=== PATIENT | male | born 1955 | race Hispanic/Latino ===

== ENCOUNTER 2020-02-07 12:54 | Inpatient (IN) | payer OTHER ==
[~2020-02-07] VITALS: Ht 165.1 cm; Wt 107.0 kg
[2020-02-07] MEDS ORDERED: RENAL DOSE IV SCH (15:30)
[2020-02-07] MEDS ORDERED: VANCOMYCIN PROTOCOL PER PHARMACY IV SCH (15:30)
[2020-02-07 15:49] LABS: BASOPHILS % (AUTO) 0.6 % (0.0-5.0); EOSINOPHILS % (AUTO) 0.3 % (0.0-8.0); HEMATOCRIT 42.7 % (42-54); LYMPHOCYTES % (AUTO) 9.3 % (21.0-51.0); MEAN CORPUSCULAR HEMOGLOBIN 27.6 pg (27.0-33.0); MEAN CORPUSCULAR HGB CONC 32.8 g/dL (32.0-36.0); MEAN CORPUSCULAR VOLUME 84.2 fL (79-99); MONOCYTES % (AUTO) 7.1 % (3.0-13.0); NEUTROPHILS % (AUTO) 81.3 % (40.0-77.0); PLATELET COUNT (AUTO) 340 K/uL (130-400); RED BLOOD CELL COUNT(AUTO) 5.07 MIL/uL (4.50-6.20); RED CELL DISTRIBUTION WIDTH 13.7 % (11.0-15.5); WHITE BLOOD COUNT (AUTO) 19.1 K/uL (4.8-10.8)
[2020-02-07 16:05] LABS: CREATININE 0.9 mg/dL (0.5-1.5)
[2020-02-07] MEDS ORDERED: COMPOUND IV REFRIGERATED 1 EACH IVSOLN MISC PRN (16:45)
[2020-02-07 16:50] LABS: APPEARANCE,URINE Clear (CLEAR); BILIRUBIN,URINE Negative (NEGATIVE); COLOR,URINE Yellow (YELLOW); GLUCOSE, URINE (UA) Negative (NEGATIVE); KETONES,URINE Negative (NEGATIVE); LEUKOCYTE ESTERASE ,URINE Small (NEGATIVE); NITRATE,URINE Negative (NEGATIVE); OCCULT BLOOD,URINE Trace (NEGATIVE); PROTEIN,URINE Negative (NEGATIVE)
[2020-02-07] MEDS ORDERED: VANCOMYCIN 2 GM in SODIUM CHLORIDE 0.9% 500ML 500 ML IV ONE (17:00)
[2020-02-07 17:18] LABS: BACTERIA,URINE Moderate /HPF (None Seen)
[2020-02-07 17:19] LABS: MUCUS,URINE Few LPF (None Seen)
[2020-02-07] MEDS ORDERED: ZOSYN 3.375GM+NS 50ML 50 ML IV SCH (21:00)
[2020-02-08] VITALS (7 sets, daily range): BP systolic 133–154; BP diastolic 64–86
[2020-02-08] MEDS ORDERED: VANCOMYCIN 1GM+NS 250ML IV SCH (06:00)
[2020-02-08 08:17] LABS: BASOPHILS % (AUTO) 0.7 % (0.0-5.0); EOSINOPHILS % (AUTO) 0.9 % (0.0-8.0); HEMATOCRIT 43.7 % (42-54); LYMPHOCYTES % (AUTO) 12.9 % (21.0-51.0); MEAN CORPUSCULAR HEMOGLOBIN 27.1 pg (27.0-33.0); MEAN CORPUSCULAR VOLUME 84.7 fL (79-99); MONOCYTES % (AUTO) 8.3 % (3.0-13.0); PLATELET COUNT (AUTO) 332 K/uL (130-400); RED BLOOD CELL COUNT(AUTO) 5.16 MIL/uL (4.50-6.20); RED CELL DISTRIBUTION WIDTH 13.8 % (11.0-15.5); WHITE BLOOD COUNT (AUTO) 14.8 K/uL (4.8-10.8)
[2020-02-08 08:27] LABS: CREATININE 0.9 mg/dL (0.5-1.5); POTASSIUM 4.4 mmol/L (3.5-5.1)
[2020-02-08] MEDS ORDERED: COMPOUND IV REFRIGERATED 1 EACH IVSOLN MISC PRN (08:45)
[2020-02-08] MEDS ORDERED: VANCOMYCIN 1GM+NS 250ML 0 ML IV ONE (08:57)
[2020-02-08] MEDS: ENOXAPARIN SODIUM 30 MG/0.3 ML SQ SCH (09:00)
[2020-02-08] MEDS ORDERED: VANCOMYCIN 1.25 GM in SODIUM CHLORIDE 0.9% 250 ML IV SCH (09:00)
[2020-02-08] MEDS: LOSARTAN 50 MG TABLET PO SCH (09:26)
[2020-02-08] MEDS: ZOSYN 3.375GM+NS 50ML 50 ML IV SCH ×2 (12:47→21:21)
[2020-02-09 04:00] VITALS: BP 123/71
[2020-02-09] MEDS: ZOSYN 3.375GM+NS 50ML 50 ML IV SCH (05:16)
[2020-02-09 05:40] LABS: BASOPHILS % (AUTO) 0.7 % (0.0-5.0); EOSINOPHILS % (AUTO) 1.1 % (0.0-8.0); HEMATOCRIT 42.3 % (42-54); LYMPHOCYTES % (AUTO) 13.1 % (21.0-51.0); MEAN CORPUSCULAR HEMOGLOBIN 26.9 pg (27.0-33.0); MEAN CORPUSCULAR HGB CONC 31.7 g/dL (32.0-36.0); MEAN CORPUSCULAR VOLUME 84.9 fL (79-99); MONOCYTES % (AUTO) 8.3 % (3.0-13.0); NEUTROPHILS % (AUTO) 75.5 % (40.0-77.0); PLATELET COUNT (AUTO) 350 K/uL (130-400); RED BLOOD CELL COUNT(AUTO) 4.98 MIL/uL (4.50-6.20); RED CELL DISTRIBUTION WIDTH 13.9 % (11.0-15.5); WHITE BLOOD COUNT (AUTO) 14.2 K/uL (4.8-10.8)
[2020-02-09 06:09] LABS: CREATININE 1.1 mg/dL (0.5-1.5); POTASSIUM 4.3 mmol/L (3.5-5.1)
[2020-02-09] MEDS ORDERED: PHARMACY COMMUNICATION MISC SCH (08:15)
[2020-02-09] MEDS: LOSARTAN 50 MG TABLET PO SCH (08:42)
[2020-02-09] MEDS: ENOXAPARIN SODIUM 30 MG/0.3 ML SQ SCH (09:00)
[2020-02-09 09:27] VITALS: BP 164/89
[2020-02-09] MEDS: MEROPENEM 1 GM VIAL IVP SCH ×2 (10:08→18:36)
[2020-02-09 12:46] VITALS: BP 135/81
[2020-02-09] MEDS ORDERED: LOSARTAN 50 MG TABLET PO SCH (14:15)
[2020-02-09 16:59] VITALS: BP_SYST 125; BP_SYST 145; BP_DIAS 54; BP_DIAS 82
[2020-02-09 19:19] VITALS: BP 128/75
[2020-02-09 23:28] VITALS: BP 141/82
[2020-02-10] MEDS: MEROPENEM 1 GM VIAL IVP SCH ×3 (02:16→17:13)
[2020-02-10 04:00] VITALS: BP 139/80
[2020-02-10 05:49] LABS: BASOPHILS % (AUTO) 0.9 % (0.0-5.0); EOSINOPHILS % (AUTO) 0.7 % (0.0-8.0); HEMATOCRIT 46.8 % (42-54); LYMPHOCYTES % (AUTO) 13.5 % (21.0-51.0); MEAN CORPUSCULAR HEMOGLOBIN 27.3 pg (27.0-33.0); MEAN CORPUSCULAR HGB CONC 32.3 g/dL (32.0-36.0); MEAN CORPUSCULAR VOLUME 84.6 fL (79-99); MONOCYTES % (AUTO) 8.3 % (3.0-13.0); NEUTROPHILS % (AUTO) 74.9 % (40.0-77.0); PLATELET COUNT (AUTO) 379 K/uL (130-400); RED BLOOD CELL COUNT(AUTO) 5.53 MIL/uL (4.50-6.20); RED CELL DISTRIBUTION WIDTH 13.8 % (11.0-15.5); WHITE BLOOD COUNT (AUTO) 16.9 K/uL (4.8-10.8)
[2020-02-10 06:39] LABS: CARBON DIOXIDE 24 mmol/L (21-32); CHLORIDE 101 mmol/L (101-111); CREATININE 1.1 mg/dL (0.5-1.5); GLOMERULAR FILTR. RATE CALC 72 mL/min (>60); GLUCOSE,RANDOM 114 mg/dL (70-105); POTASSIUM 4.2 mmol/L (3.5-5.1); SODIUM SERUM 137 mmol/L (136-145); UREA NITROGEN, BLOOD 15 mg/dL (7-18)
[2020-02-10 08:12] VITALS: BP 132/93
[2020-02-10] MEDS: LOSARTAN 50 MG TABLET PO SCH (09:03)
[2020-02-10] MEDS: ENOXAPARIN SODIUM 30 MG/0.3 ML SQ SCH (09:03)
[2020-02-10 12:22] VITALS: BP 159/90
[2020-02-10 18:29] VITALS: BP 134/82
[2020-02-10 19:30] VITALS: BP 133/84
[2020-02-10 23:22] VITALS: BP 132/79
[2020-02-11] MEDS: MEROPENEM 1 GM VIAL IVP SCH ×3 (02:04→17:35)
[2020-02-11 03:47] VITALS: BP 131/73
[2020-02-11 05:44] LABS: BASOPHILS % (AUTO) 0.7 % (0.0-5.0); EOSINOPHILS % (AUTO) 0.4 % (0.0-8.0); LYMPHOCYTES % (AUTO) 9.2 % (21.0-51.0); MEAN CORPUSCULAR HEMOGLOBIN 27.3 pg (27.0-33.0); MEAN CORPUSCULAR VOLUME 85.1 fL (79-99); MONOCYTES % (AUTO) 10.6 % (3.0-13.0); NEUTROPHILS % (AUTO) 77.1 % (40.0-77.0); PLATELET COUNT (AUTO) 345 K/uL (130-400); RED BLOOD CELL COUNT(AUTO) 5.17 MIL/uL (4.50-6.20); RED CELL DISTRIBUTION WIDTH 13.9 % (11.0-15.5); WHITE BLOOD COUNT (AUTO) 16.9 K/uL (4.8-10.8)
[2020-02-11 06:01] LABS: CREATININE 1.1 mg/dL (0.5-1.5); POTASSIUM 4.5 mmol/L (3.5-5.1)
[2020-02-11 07:54] VITALS: BP 133/72
[2020-02-11] MEDS: ENOXAPARIN SODIUM 30 MG/0.3 ML SQ SCH (08:58)
[2020-02-11] MEDS: LOSARTAN 50 MG TABLET PO SCH (08:58)
[2020-02-11 12:00] VITALS: BP 138/75
[2020-02-11 18:04] VITALS: BP 159/81
[2020-02-11 20:20] VITALS: BP 152/96
[2020-02-11 23:17] VITALS: BP 150/86
[2020-02-12] MEDS: MEROPENEM 1 GM VIAL IVP SCH ×3 (03:34→18:33)
[2020-02-12] MEDS ORDERED: KETOROLAC TROMETHAMINE 15MG/ML ONE (03:35)
[2020-02-12] MEDS ORDERED: ACETAMINOPHEN 325 MG TAB PO PRN (04:00)
[2020-02-12 04:01] VITALS: BP 127/69
[2020-02-12 05:48] LABS: BASOPHILS % (AUTO) 0.8 % (0.0-5.0); EOSINOPHILS % (AUTO) 0.4 % (0.0-8.0); HEMATOCRIT 43.9 % (42-54); LYMPHOCYTES % (AUTO) 11.1 % (21.0-51.0); MEAN CORPUSCULAR HEMOGLOBIN 26.6 pg (27.0-33.0); MEAN CORPUSCULAR HGB CONC 31.7 g/dL (32.0-36.0); MEAN CORPUSCULAR VOLUME 84.1 fL (79-99); MONOCYTES % (AUTO) 14.4 % (3.0-13.0); NEUTROPHILS % (AUTO) 71.6 % (40.0-77.0); PLATELET COUNT (AUTO) 325 K/uL (130-400); RED BLOOD CELL COUNT(AUTO) 5.22 MIL/uL (4.50-6.20); RED CELL DISTRIBUTION WIDTH 13.8 % (11.0-15.5); WHITE BLOOD COUNT (AUTO) 13.4 K/uL (4.8-10.8)
[2020-02-12 06:01] LABS: CREATININE 1.2 mg/dL (0.5-1.5); POTASSIUM 4.3 mmol/L (3.5-5.1)
[2020-02-12 08:24] VITALS: BP 143/84
[2020-02-12] MEDS: ENOXAPARIN SODIUM 30 MG/0.3 ML SQ SCH (09:18)
[2020-02-12] MEDS: LOSARTAN 50 MG TABLET PO SCH (09:18)
[2020-02-12 10:12] LABS: CHLAMYDIA DNA N.A.AMPLIFY Negative (Negative)
[2020-02-12 11:34] VITALS: BP 129/73
[2020-02-12] MEDS: ACETAMINOPHEN-CODEINE 300/30MG TAB PO PRN (14:08)
[2020-02-12 16:38] VITALS: BP 133/81
[2020-02-12] MEDS ORDERED: METFORMIN HCL 500 MG TABLET PO SCH (19:20)
[2020-02-12 19:52] VITALS: BP 116/73
[2020-02-12] MEDS: KETOROLAC TROMETHAMINE 15MG/ML IV PRN (20:18)
[2020-02-12 23:13] VITALS: BP 121/67
[2020-02-13] MEDS: MEROPENEM 1 GM VIAL IVP SCH ×3 (01:48→20:29)
[2020-02-13 04:26] VITALS: BP 130/75
[2020-02-13 06:39] LABS: BASOPHILS % (AUTO) 0.7 % (0.0-5.0); EOSINOPHILS % (AUTO) 0.1 % (0.0-8.0); HEMATOCRIT 46.3 % (42-54); LYMPHOCYTES % (AUTO) 10.4 % (21.0-51.0); MEAN CORPUSCULAR HEMOGLOBIN 26.4 pg (27.0-33.0); MEAN CORPUSCULAR HGB CONC 31.5 g/dL (32.0-36.0); MEAN CORPUSCULAR VOLUME 83.9 fL (79-99); MONOCYTES % (AUTO) 13.9 % (3.0-13.0); NEUTROPHILS % (AUTO) 73.9 % (40.0-77.0); PLATELET COUNT (AUTO) 338 K/uL (130-400); RED BLOOD CELL COUNT(AUTO) 5.52 MIL/uL (4.50-6.20); WHITE BLOOD COUNT (AUTO) 13.4 K/uL (4.8-10.8)
[2020-02-13] MEDS: ACETAMINOPHEN-CODEINE 300/30MG TAB PO PRN ×2 (08:56→17:59)
[2020-02-13] MEDS: LOSARTAN 50 MG TABLET PO SCH (08:56)
[2020-02-13 08:57] VITALS: BP 128/75
[2020-02-13] MEDS: ENOXAPARIN SODIUM 30 MG/0.3 ML SQ SCH (08:57)
[2020-02-13 09:10] LABS: CREATININE 1.1 mg/dL (0.5-1.5); POTASSIUM 4.3 mmol/L (3.5-5.1)
[2020-02-13] MEDS: KETOROLAC TROMETHAMINE 15MG/ML IV PRN ×2 (10:52→20:34)
[2020-02-13 11:44] VITALS: BP 129/81
[2020-02-13 11:48] VITALS: BP 129/81
[2020-02-13 16:27] VITALS: BP 129/76
[2020-02-13 20:00] VITALS: BP 120/89
[2020-02-14] VITALS: BP 135/76
[2020-02-14] MEDS: MEROPENEM 1 GM VIAL IVP SCH ×3 (02:18→17:43)
[2020-02-14] MEDS: KETOROLAC TROMETHAMINE 15MG/ML IV PRN ×4 (02:37→23:36)
[2020-02-14 04:00] VITALS: BP 123/73
[2020-02-14 05:51] LABS: CREATININE 1.3 mg/dL (0.5-1.5); POTASSIUM 4.5 mmol/L (3.5-5.1)
[2020-02-14 08:14] VITALS: BP 145/84
[2020-02-14] MEDS: ENOXAPARIN SODIUM 30 MG/0.3 ML SQ SCH (08:56)
[2020-02-14] MEDS: LOSARTAN 50 MG TABLET PO SCH (08:56)
[2020-02-14 11:52] VITALS: BP 121/71
[2020-02-14] MEDS: SENNOSIDES 8.6 MG TABLET PO PRN (12:45)
[2020-02-14] MEDS: POLYETHYLENE GLYCOL 3350 17 GM POWD.PACK PO SCH (12:46)
[2020-02-14] MEDS: ACETAMINOPHEN-CODEINE 300/30MG TAB PO PRN (12:46)
[2020-02-14 16:55] VITALS: BP 106/64
[2020-02-14 20:08] VITALS: BP 113/62
[2020-02-15 00:28] VITALS: BP 109/68
[2020-02-15] MEDS: MEROPENEM 1 GM VIAL IVP SCH ×3 (01:58→18:52)
[2020-02-15] MEDS: ACETAMINOPHEN-CODEINE 300/30MG TAB PO PRN ×2 (02:03→12:33)
[2020-02-15 04:28] VITALS: BP 100/61
[2020-02-15 05:34] LABS: BASOPHILS % (AUTO) 0.2 % (0.0-5.0); EOSINOPHILS % (AUTO) 0.1 % (0.0-8.0); HEMATOCRIT 40.9 % (42-54); LYMPHOCYTES % (AUTO) 9.8 % (21.0-51.0); MEAN CORPUSCULAR HEMOGLOBIN 26.7 pg (27.0-33.0); MEAN CORPUSCULAR VOLUME 83.5 fL (79-99); MONOCYTES % (AUTO) 9.4 % (3.0-13.0); NEUTROPHILS % (AUTO) 79.9 % (40.0-77.0); PLATELET COUNT (AUTO) 280 K/uL (130-400); RED CELL DISTRIBUTION WIDTH 13.8 % (11.0-15.5)
[2020-02-15 05:44] LABS: CREATININE 1.3 mg/dL (0.5-1.5); POTASSIUM 4.5 mmol/L (3.5-5.1)
[2020-02-15 07:51] VITALS: BP 135/73
[2020-02-15] MEDS: KETOROLAC TROMETHAMINE 15MG/ML IV PRN (08:41)
[2020-02-15] MEDS: LOSARTAN 50 MG TABLET PO SCH (08:41)
[2020-02-15] MEDS: SENNOSIDES 8.6 MG TABLET PO PRN (08:41)
[2020-02-15] MEDS: ENOXAPARIN SODIUM 30 MG/0.3 ML SQ SCH (08:41)
[2020-02-15] MEDS: POLYETHYLENE GLYCOL 3350 17 GM POWD.PACK PO SCH (08:41)
[2020-02-15 11:56] VITALS: BP 118/69
[2020-02-15 16:00] VITALS: BP 135/71
[2020-02-15] MEDS ORDERED: LACTULOSE 20 GM/30 ML UDCUP PO PRN ×2 (19:45→20:45)
[2020-02-15 20:00] VITALS: BP 127/66
[2020-02-16] VITALS (7 sets, daily range): BP systolic 103–152; BP diastolic 56–78
[2020-02-16] MEDS: MEROPENEM 1 GM VIAL IVP SCH ×3 (01:39→17:49)
[2020-02-16] MEDS: ACETAMINOPHEN-CODEINE 300/30MG TAB PO PRN (01:39)
[2020-02-16 03:43] LABS: BASOPHILS % (AUTO) 0.3 % (0.0-5.0); HEMATOCRIT 41.8 % (42-54); LYMPHOCYTES % (AUTO) 8.2 % (21.0-51.0); MEAN CORPUSCULAR HGB CONC 32.5 g/dL (32.0-36.0); MEAN CORPUSCULAR VOLUME 82.9 fL (79-99); MONOCYTES % (AUTO) 9.7 % (3.0-13.0); NEUTROPHILS % (AUTO) 81.3 % (40.0-77.0); PLATELET COUNT (AUTO) 258 K/uL (130-400); RED BLOOD CELL COUNT(AUTO) 5.04 MIL/uL (4.50-6.20); RED CELL DISTRIBUTION WIDTH 13.8 % (11.0-15.5); WHITE BLOOD COUNT (AUTO) 14.7 K/uL (4.8-10.8)
[2020-02-16 03:58] LABS: CREATININE 1.2 mg/dL (0.5-1.5); POTASSIUM 4.2 mmol/L (3.5-5.1)
[2020-02-16] MEDS: LOSARTAN 50 MG TABLET PO SCH (08:09)
[2020-02-16] MEDS: POLYETHYLENE GLYCOL 3350 17 GM POWD.PACK PO SCH (08:09)
[2020-02-16] MEDS: ENOXAPARIN SODIUM 30 MG/0.3 ML SQ SCH (08:10)
[2020-02-16] MEDS ORDERED: LUBIPROSTONE 24 MCG CAP PO SCH (09:00)
[2020-02-16 12:00] LABS: ALBUMIN 2.6 g/dL (3.5-5.0); BILIRUBIN,DIRECT 0.2 mg/dL (0.0-0.3); BILIRUBIN,TOTAL 0.4 mg/dL (0.2-1.0); TOTAL PROTEIN, SERUM 7.7 g/dL (6.0-8.3)
[2020-02-16] MEDS ORDERED: ONDANSETRON HCL 4 MG/2 ML VIAL IVP PRN (12:00)
[2020-02-16 12:18] LABS: HEMOGLOBIN A1C 6.9 % (4.0-6.0)
[2020-02-16 13:02] LABS: CRP QUANTITATIVE 224.7 mg/L (0.00-9.0)
[2020-02-16] MEDS: ENOXAPARIN SODIUM 60 MG/0.6 ML SQ SCH (19:57)
[2020-02-17 03:00] VITALS: BP 123/67
[2020-02-17] MEDS: MEROPENEM 1 GM VIAL IVP SCH ×3 (03:05→18:14)
[2020-02-17 05:57] LABS: BASOPHILS % (AUTO) 0.4 % (0.0-5.0); EOSINOPHILS % (AUTO) 0.1 % (0.0-8.0); HEMATOCRIT 42.5 % (42-54); LYMPHOCYTES % (AUTO) 10.6 % (21.0-51.0); MEAN CORPUSCULAR HGB CONC 32.7 g/dL (32.0-36.0); MEAN CORPUSCULAR VOLUME 82.5 fL (79-99); MONOCYTES % (AUTO) 10.7 % (3.0-13.0); NEUTROPHILS % (AUTO) 77.7 % (40.0-77.0); PLATELET COUNT (AUTO) 251 K/uL (130-400); RED BLOOD CELL COUNT(AUTO) 5.15 MIL/uL (4.50-6.20); RED CELL DISTRIBUTION WIDTH 13.8 % (11.0-15.5); WHITE BLOOD COUNT (AUTO) 10.3 K/uL (4.8-10.8)
[2020-02-17 06:23] LABS: CREATININE 1.2 mg/dL (0.5-1.5); POTASSIUM 4.5 mmol/L (3.5-5.1)
[2020-02-17 07:00] VITALS: BP 105/54
[2020-02-17 07:01] LABS: CRP QUANTITATIVE 212.3 mg/L (0.00-9.0)
[2020-02-17] MEDS ORDERED: DEXAMETHASONE SOD PHOSPHATE 4 MG/ML 1ML VIAL IM SCH (09:00)
[2020-02-17] MEDS: POLYETHYLENE GLYCOL 3350 17 GM POWD.PACK PO SCH (09:27)
[2020-02-17] MEDS: LOSARTAN 50 MG TABLET PO SCH (09:28)
[2020-02-17] MEDS: ENOXAPARIN SODIUM 60 MG/0.6 ML SQ SCH ×2 (09:31→21:52)
[2020-02-17 11:00] VITALS: BP 113/71
[2020-02-17 16:00] VITALS: BP 103/64
[2020-02-17 19:26] VITALS: BP 103/59
[2020-02-17] MEDS: ACETYLCYSTEINE 600 MG CAPSULE PO SCH (21:52)
[2020-02-17 23:15] VITALS: BP 107/70
[2020-02-18] MEDS: MEROPENEM 1 GM VIAL IVP SCH ×3 (02:33→18:22)
[2020-02-18 03:59] VITALS: BP 94/62
[2020-02-18 06:26] LABS: BASOPHILS % (AUTO) 0.2 % (0.0-5.0); EOSINOPHILS % (AUTO) 1.5 % (0.0-8.0); HEMATOCRIT 43.8 % (42-54); LYMPHOCYTES % (AUTO) 11.4 % (21.0-51.0); MEAN CORPUSCULAR HEMOGLOBIN 26.7 pg (27.0-33.0); MEAN CORPUSCULAR HGB CONC 32.2 g/dL (32.0-36.0); MEAN CORPUSCULAR VOLUME 82.8 fL (79-99); MONOCYTES % (AUTO) 9.9 % (3.0-13.0); NEUTROPHILS % (AUTO) 76.7 % (40.0-77.0); PLATELET COUNT (AUTO) 287 K/uL (130-400); RED BLOOD CELL COUNT(AUTO) 5.29 MIL/uL (4.50-6.20); RED CELL DISTRIBUTION WIDTH 13.8 % (11.0-15.5); WHITE BLOOD COUNT (AUTO) 9.5 K/uL (4.8-10.8)
[2020-02-18 06:45] LABS: ALBUMIN 2.5 g/dL (3.5-5.0); BILIRUBIN,TOTAL 0.4 mg/dL (0.2-1.0); POTASSIUM 4.1 mmol/L (3.5-5.1)
[2020-02-18 07:09] LABS: CRP QUANTITATIVE 176.1 mg/L (0.00-9.0); TOTAL PROTEIN, SERUM 7.9 g/dL (6.0-8.3)
[2020-02-18 08:30] VITALS: BP 110/68
[2020-02-18] MEDS: DEXAMETHASONE SOD PHOSPHATE 4 MG/ML 1ML VIAL IVP SCH (08:45)
[2020-02-18] MEDS: ASCORBIC ACID 500 MG TAB PO SCH (08:46)
[2020-02-18] MEDS: ZINC SULFATE 220 CAPSULE PO SCH (08:46)
[2020-02-18] MEDS: ACETYLCYSTEINE 600 MG CAPSULE PO SCH ×2 (08:46→21:12)
[2020-02-18] MEDS: ENOXAPARIN SODIUM 60 MG/0.6 ML SQ SCH ×2 (08:48→21:12)
[2020-02-18] MEDS: LOSARTAN 50 MG TABLET PO SCH (08:50)
[2020-02-18] MEDS: POLYETHYLENE GLYCOL 3350 17 GM POWD.PACK PO SCH (09:00)
[2020-02-18 12:52] VITALS: BP 118/80
[2020-02-18 16:30] VITALS: BP 104/66
[2020-02-18 20:11] VITALS: BP 116/68
[2020-02-19 00:09] VITALS: BP 100/67
[2020-02-19] MEDS: MEROPENEM 1 GM VIAL IVP SCH ×3 (03:49→19:19)
[2020-02-19 04:00] VITALS: BP 109/70
[2020-02-19 05:09] LABS: BASOPHILS % (AUTO) 0.2 % (0.0-5.0); HEMATOCRIT 43.1 % (42-54); LYMPHOCYTES % (AUTO) 8.4 % (21.0-51.0); MEAN CORPUSCULAR HEMOGLOBIN 26.6 pg (27.0-33.0); MEAN CORPUSCULAR HGB CONC 32.5 g/dL (32.0-36.0); MEAN CORPUSCULAR VOLUME 81.8 fL (79-99); MONOCYTES % (AUTO) 7.2 % (3.0-13.0); NEUTROPHILS % (AUTO) 83.6 % (40.0-77.0); PLATELET COUNT (AUTO) 281 K/uL (130-400); RED BLOOD CELL COUNT(AUTO) 5.27 MIL/uL (4.50-6.20); RED CELL DISTRIBUTION WIDTH 13.9 % (11.0-15.5); WHITE BLOOD COUNT (AUTO) 13.3 K/uL (4.8-10.8)
[2020-02-19 05:45] LABS: ALBUMIN 2.3 g/dL (3.5-5.0); BILIRUBIN,TOTAL 0.4 mg/dL (0.2-1.0); CREATININE 1.1 mg/dL (0.5-1.5); CRP QUANTITATIVE 116.5 mg/L (0.00-9.0); POTASSIUM 4.7 mmol/L (3.5-5.1); TOTAL PROTEIN, SERUM 7.6 g/dL (6.0-8.3)
[2020-02-19] MEDS: POLYETHYLENE GLYCOL 3350 17 GM POWD.PACK PO SCH (08:32)
[2020-02-19] MEDS: ZINC SULFATE 220 CAPSULE PO SCH (08:32)
[2020-02-19] MEDS: DEXAMETHASONE SOD PHOSPHATE 4 MG/ML 1ML VIAL IVP SCH (08:32)
[2020-02-19] MEDS: ACETYLCYSTEINE 600 MG CAPSULE PO SCH ×2 (08:32→21:17)
[2020-02-19] MEDS: ASCORBIC ACID 500 MG TAB PO SCH (08:32)
[2020-02-19] MEDS: LOSARTAN 50 MG TABLET PO SCH (08:33)
[2020-02-19] MEDS: ENOXAPARIN SODIUM 60 MG/0.6 ML SQ SCH ×2 (08:34→21:17)
[2020-02-19 09:17] VITALS: BP 136/48
[2020-02-19 12:43] VITALS: BP 112/64
[2020-02-19 16:32] VITALS: BP 101/69
[2020-02-19 20:00] VITALS: BP 119/70
[2020-02-19] MEDS: NAPROXEN 500 MG TABLET PO SCH (21:16)
[2020-02-20] VITALS: BP 107/65
[2020-02-20] MEDS: MEROPENEM 1 GM VIAL IVP SCH ×3 (02:54→18:04)
[2020-02-20 04:00] VITALS: BP 106/67
[2020-02-20 05:00] LABS: BASOPHILS % (AUTO) 0.2 % (0.0-5.0); HEMATOCRIT 46.3 % (42-54); LYMPHOCYTES % (AUTO) 11.7 % (21.0-51.0); MEAN CORPUSCULAR HEMOGLOBIN 26.4 pg (27.0-33.0); MEAN CORPUSCULAR HGB CONC 31.5 g/dL (32.0-36.0); MEAN CORPUSCULAR VOLUME 83.9 fL (79-99); NEUTROPHILS % (AUTO) 80.5 % (40.0-77.0); PLATELET COUNT (AUTO) 318 K/uL (130-400); RED BLOOD CELL COUNT(AUTO) 5.52 MIL/uL (4.50-6.20); RED CELL DISTRIBUTION WIDTH 13.9 % (11.0-15.5); WHITE BLOOD COUNT (AUTO) 11.6 K/uL (4.8-10.8)
[2020-02-20 05:32] LABS: ALBUMIN 2.5 g/dL (3.5-5.0); POTASSIUM 4.5 mmol/L (3.5-5.1)
[2020-02-20 05:46] LABS: BILIRUBIN,TOTAL 0.6 mg/dL (0.2-1.0); CRP QUANTITATIVE 140.1 mg/L (0.00-9.0); TOTAL PROTEIN, SERUM 8.2 g/dL (6.0-8.3)
[2020-02-20 08:00] VITALS: BP 116/75
[2020-02-20] MEDS: POLYETHYLENE GLYCOL 3350 17 GM POWD.PACK PO SCH (09:00)
[2020-02-20] MEDS: LOSARTAN 50 MG TABLET PO SCH (09:14)
[2020-02-20] MEDS: ZINC SULFATE 220 CAPSULE PO SCH (09:14)
[2020-02-20] MEDS: ENOXAPARIN SODIUM 60 MG/0.6 ML SQ SCH ×2 (09:14→21:36)
[2020-02-20] MEDS: NAPROXEN 500 MG TABLET PO SCH ×2 (09:14→21:36)
[2020-02-20] MEDS: DEXAMETHASONE SOD PHOSPHATE 4 MG/ML 1ML VIAL IVP SCH (09:15)
[2020-02-20] MEDS: ASCORBIC ACID 500 MG TAB PO SCH (09:15)
[2020-02-20] MEDS: ACETYLCYSTEINE 600 MG CAPSULE PO SCH (09:15)
[2020-02-20 12:01] VITALS: BP 117/72
[2020-02-20 16:00] VITALS: BP 100/68
[2020-02-20 19:33] VITALS: BP 117/74
[2020-02-20] MEDS: INSULIN HUMULIN R 100 UNIT/ML 3ML SQ SCH (21:00)
[2020-02-21 00:05] VITALS: BP 143/75
[2020-02-21] MEDS: MEROPENEM 1 GM VIAL IVP SCH ×3 (03:00→16:51)
[2020-02-21 03:45] VITALS: BP 106/67
[2020-02-21 05:30] LABS: HEMATOCRIT 43.8 % (42-54); MEAN CORPUSCULAR HEMOGLOBIN 26.8 pg (27.0-33.0); MEAN CORPUSCULAR HGB CONC 32.4 g/dL (32.0-36.0); MEAN CORPUSCULAR VOLUME 82.6 fL (79-99); RED BLOOD CELL COUNT(AUTO) 5.3 MIL/uL (4.50-6.20); RED CELL DISTRIBUTION WIDTH 13.7 % (11.0-15.5); WHITE BLOOD COUNT (AUTO) 8.6 K/uL (4.8-10.8)
[2020-02-21 05:38] LABS: CARBON DIOXIDE 24 mmol/L (21-32); CHLORIDE 101 mmol/L (101-111); CREATININE 0.9 mg/dL (0.5-1.5); GLOMERULAR FILTR. RATE CALC 91 mL/min (>60); GLUCOSE,RANDOM 95 mg/dL (70-105); POTASSIUM 4.3 mmol/L (3.5-5.1); SODIUM SERUM 135 mmol/L (136-145); UREA NITROGEN, BLOOD 24 mg/dL (7-18)
[2020-02-21] MEDS: INSULIN HUMULIN R 100 UNIT/ML 3ML SQ SCH ×4 (06:30→21:00)
[2020-02-21 08:00] VITALS: BP 100/63
[2020-02-21] MEDS: ZINC SULFATE 220 CAPSULE PO SCH (08:29)
[2020-02-21] MEDS: LOSARTAN 50 MG TABLET PO SCH (08:29)
[2020-02-21] MEDS: ENOXAPARIN SODIUM 60 MG/0.6 ML SQ SCH ×2 (08:29→21:54)
[2020-02-21] MEDS: ASCORBIC ACID 500 MG TAB PO SCH (08:29)
[2020-02-21] MEDS: POLYETHYLENE GLYCOL 3350 17 GM POWD.PACK PO SCH (08:30)
[2020-02-21] MEDS: NAPROXEN 500 MG TABLET PO SCH ×2 (08:39→21:54)
[2020-02-21 12:00] VITALS: BP 93/52
[2020-02-21 16:00] VITALS: BP 104/54
[2020-02-21 19:30] VITALS: BP 115/78
[2020-02-22] VITALS (7 sets, daily range): BP systolic 92–135; BP diastolic 52–73
[2020-02-22] MEDS: MEROPENEM 1 GM VIAL IVP SCH ×3 (02:30→17:42)
[2020-02-22] MEDS: INSULIN HUMULIN R 100 UNIT/ML 3ML SQ SCH ×4 (06:46→21:00)
[2020-02-22] MEDS: POLYETHYLENE GLYCOL 3350 17 GM POWD.PACK PO SCH (09:00)
[2020-02-22] MEDS: NAPROXEN 500 MG TABLET PO SCH ×2 (09:01→19:52)
[2020-02-22] MEDS: LOSARTAN 50 MG TABLET PO SCH (09:01)
[2020-02-22] MEDS: ZINC SULFATE 220 CAPSULE PO SCH (09:01)
[2020-02-22] MEDS: ASCORBIC ACID 500 MG TAB PO SCH (09:01)
[2020-02-22] MEDS: ENOXAPARIN SODIUM 60 MG/0.6 ML SQ SCH ×2 (09:02→19:52)
[2020-02-23] MEDS: MEROPENEM 1 GM VIAL IVP SCH (03:04)
[2020-02-23 03:46] VITALS: BP 109/66
[2020-02-23] MEDS: INSULIN HUMULIN R 100 UNIT/ML 3ML SQ SCH ×4 (05:30→20:39)
[2020-02-23 06:06] LABS: BASOPHILS % (AUTO) 0.4 % (0.0-5.0); EOSINOPHILS % (AUTO) 1.6 % (0.0-8.0); HEMATOCRIT 41.9 % (42-54); MEAN CORPUSCULAR HEMOGLOBIN 26.9 pg (27.0-33.0); MEAN CORPUSCULAR HGB CONC 32.2 g/dL (32.0-36.0); MEAN CORPUSCULAR VOLUME 83.6 fL (79-99); MONOCYTES % (AUTO) 10.1 % (3.0-13.0); NEUTROPHILS % (AUTO) 69.7 % (40.0-77.0); PLATELET COUNT (AUTO) 361 K/uL (130-400); RED BLOOD CELL COUNT(AUTO) 5.01 MIL/uL (4.50-6.20); RED CELL DISTRIBUTION WIDTH 13.9 % (11.0-15.5); WHITE BLOOD COUNT (AUTO) 8.2 K/uL (4.8-10.8)
[2020-02-23 06:44] LABS: ALBUMIN 2.2 g/dL (3.5-5.0); BILIRUBIN,TOTAL 0.5 mg/dL (0.2-1.0); CRP QUANTITATIVE 65.3 mg/L (0.00-9.0); POTASSIUM 4.3 mmol/L (3.5-5.1); TOTAL PROTEIN, SERUM 7.2 g/dL (6.0-8.3)
[2020-02-23 08:30] VITALS: BP 107/67
[2020-02-23] MEDS: POLYETHYLENE GLYCOL 3350 17 GM POWD.PACK PO SCH (09:00)
[2020-02-23] MEDS: LOSARTAN 50 MG TABLET PO SCH (09:08)
[2020-02-23] MEDS: NAPROXEN 500 MG TABLET PO SCH ×2 (09:08→19:48)
[2020-02-23] MEDS: ZINC SULFATE 220 CAPSULE PO SCH (09:08)
[2020-02-23] MEDS: ASCORBIC ACID 500 MG TAB PO SCH (09:08)
[2020-02-23] MEDS: ENOXAPARIN SODIUM 60 MG/0.6 ML SQ SCH ×2 (09:09→19:49)
[2020-02-23 12:19] VITALS: BP 98/63
[2020-02-23 16:28] VITALS: BP 107/65
[2020-02-23 19:00] VITALS: BP 95/66
[2020-02-23 23:00] VITALS: BP 117/60
[2020-02-24 03:00] VITALS: BP 99/71
[2020-02-24 04:53] LABS: BASOPHILS % (AUTO) 0.6 % (0.0-5.0); EOSINOPHILS % (AUTO) 3.3 % (0.0-8.0); HEMATOCRIT 43.9 % (42-54); LYMPHOCYTES % (AUTO) 14.1 % (21.0-51.0); MEAN CORPUSCULAR HEMOGLOBIN 26.1 pg (27.0-33.0); MEAN CORPUSCULAR HGB CONC 31.2 g/dL (32.0-36.0); MEAN CORPUSCULAR VOLUME 83.8 fL (79-99); MONOCYTES % (AUTO) 10.3 % (3.0-13.0); PLATELET COUNT (AUTO) 421 K/uL (130-400); RED BLOOD CELL COUNT(AUTO) 5.24 MIL/uL (4.50-6.20); RED CELL DISTRIBUTION WIDTH 13.9 % (11.0-15.5); WHITE BLOOD COUNT (AUTO) 9.4 K/uL (4.8-10.8)
[2020-02-24 05:11] LABS: ALANINE AMINOTRANSFERASE 76 U/L (12-78); ALBUMIN 2.3 g/dL (3.5-5.0); ASPARTATE AMINOTRANSFERASE 44 U/L (10-37); BILIRUBIN,TOTAL 0.6 mg/dL (0.2-1.0); CARBON DIOXIDE 27 mmol/L (21-32); CHLORIDE 102 mmol/L (101-111); GLOMERULAR FILTR. RATE CALC 80 mL/min (>60); GLUCOSE,RANDOM 106 mg/dL (70-105); POTASSIUM 4.2 mmol/L (3.5-5.1); SODIUM SERUM 136 mmol/L (136-145); TOTAL PROTEIN, SERUM 7.5 g/dL (6.0-8.3); UREA NITROGEN, BLOOD 16 mg/dL (7-18)
[2020-02-24] MEDS: INSULIN HUMULIN R 100 UNIT/ML 3ML SQ SCH ×4 (06:48→21:00)
[2020-02-24 08:47] VITALS: BP 111/71
[2020-02-24] MEDS: POLYETHYLENE GLYCOL 3350 17 GM POWD.PACK PO SCH (09:00)
[2020-02-24] MEDS: ASCORBIC ACID 500 MG TAB PO SCH (09:46)
[2020-02-24] MEDS: LOSARTAN 50 MG TABLET PO SCH (09:46)
[2020-02-24] MEDS: NAPROXEN 500 MG TABLET PO SCH ×2 (09:46→20:25)
[2020-02-24] MEDS: ZINC SULFATE 220 CAPSULE PO SCH (09:47)
[2020-02-24] MEDS: ENOXAPARIN SODIUM 60 MG/0.6 ML SQ SCH ×2 (09:47→20:26)
[2020-02-24 12:11] VITALS: BP 108/64
[2020-02-24 16:41] VITALS: BP 106/73
[2020-02-24 20:36] VITALS: BP 106/71
[2020-02-25] VITALS (7 sets, daily range): BP systolic 98–118; BP diastolic 49–77
[2020-02-25] MEDS: ACETAMINOPHEN-CODEINE 300/30MG TAB PO PRN (01:12)
[2020-02-25] MEDS: INSULIN HUMULIN R 100 UNIT/ML 3ML SQ SCH ×4 (06:19→20:32)
[2020-02-25 06:23] LABS: BASOPHILS % (AUTO) 0.8 % (0.0-5.0); EOSINOPHILS % (AUTO) 3.9 % (0.0-8.0); HEMATOCRIT 42.7 % (42-54); LYMPHOCYTES % (AUTO) 13.8 % (21.0-51.0); MEAN CORPUSCULAR HEMOGLOBIN 26.6 pg (27.0-33.0); MEAN CORPUSCULAR HGB CONC 31.9 g/dL (32.0-36.0); MEAN CORPUSCULAR VOLUME 83.6 fL (79-99); MONOCYTES % (AUTO) 10.9 % (3.0-13.0); NEUTROPHILS % (AUTO) 68.3 % (40.0-77.0); PLATELET COUNT (AUTO) 420 K/uL (130-400); RED BLOOD CELL COUNT(AUTO) 5.11 MIL/uL (4.50-6.20)
[2020-02-25 06:42] LABS: ALBUMIN 2.1 g/dL (3.5-5.0); BILIRUBIN,TOTAL 0.5 mg/dL (0.2-1.0); CRP QUANTITATIVE 92.3 mg/L (0.00-9.0); POTASSIUM 4.6 mmol/L (3.5-5.1); TOTAL PROTEIN, SERUM 7.3 g/dL (6.0-8.3)
[2020-02-25] MEDS: LOSARTAN 50 MG TABLET PO SCH ×2 (09:00→09:21)
[2020-02-25] MEDS: POLYETHYLENE GLYCOL 3350 17 GM POWD.PACK PO SCH ×2 (09:00→09:23)
[2020-02-25] MEDS: NAPROXEN 500 MG TABLET PO SCH ×2 (09:21→20:09)
[2020-02-25] MEDS: ASCORBIC ACID 500 MG TAB PO SCH (09:21)
[2020-02-25] MEDS: ZINC SULFATE 220 CAPSULE PO SCH (09:21)
[2020-02-25] MEDS: ENOXAPARIN SODIUM 60 MG/0.6 ML SQ SCH ×2 (09:22→20:10)
[2020-02-26 03:12] VITALS: BP 97/62
[2020-02-26] MEDS: INSULIN HUMULIN R 100 UNIT/ML 3ML SQ SCH ×3 (07:30→15:58)
[2020-02-26] MEDS: POLYETHYLENE GLYCOL 3350 17 GM POWD.PACK PO SCH (09:00)
[2020-02-26] MEDS: NAPROXEN 500 MG TABLET PO SCH ×2 (09:00→21:05)
[2020-02-26] MEDS: LOSARTAN 50 MG TABLET PO SCH (09:12)
[2020-02-26] MEDS: ASCORBIC ACID 500 MG TAB PO SCH (09:12)
[2020-02-26] MEDS: ZINC SULFATE 220 CAPSULE PO SCH (09:12)
[2020-02-26] MEDS: ENOXAPARIN SODIUM 60 MG/0.6 ML SQ SCH ×2 (09:13→21:06)
[2020-02-26 12:18] VITALS: BP 122/66
[2020-02-26 16:12] VITALS: BP 111/67
[2020-02-26 20:00] VITALS: BP 115/70
[2020-02-27] VITALS (7 sets, daily range): BP systolic 94–148; BP diastolic 59–117
[2020-02-27] MEDS: INSULIN HUMULIN R 100 UNIT/ML 3ML SQ SCH ×4 (06:15→21:00)
[2020-02-27 06:24] LABS: BASOPHILS % (AUTO) 1.2 % (0.0-5.0); EOSINOPHILS % (AUTO) 2.3 % (0.0-8.0); HEMATOCRIT 37.8 % (42-54); LYMPHOCYTES % (AUTO) 21.2 % (21.0-51.0); MEAN CORPUSCULAR HEMOGLOBIN 26.2 pg (27.0-33.0); MEAN CORPUSCULAR HGB CONC 31.5 g/dL (32.0-36.0); MEAN CORPUSCULAR VOLUME 83.3 fL (79-99); MONOCYTES % (AUTO) 10.5 % (3.0-13.0); NEUTROPHILS % (AUTO) 61.2 % (40.0-77.0); PLATELET COUNT (AUTO) 509 K/uL (130-400); RED BLOOD CELL COUNT(AUTO) 4.54 MIL/uL (4.50-6.20); WHITE BLOOD COUNT (AUTO) 11.3 K/uL (4.8-10.8)
[2020-02-27 06:59] LABS: CREATININE 0.9 mg/dL (0.5-1.5); CRP QUANTITATIVE 46.8 mg/L (0.00-9.0); POTASSIUM 4.1 mmol/L (3.5-5.1)
[2020-02-27] MEDS: POLYETHYLENE GLYCOL 3350 17 GM POWD.PACK PO SCH (08:14)
[2020-02-27] MEDS: NAPROXEN 500 MG TABLET PO SCH ×2 (08:14→20:17)
[2020-02-27] MEDS: LOSARTAN 50 MG TABLET PO SCH (08:14)
[2020-02-27] MEDS: ENOXAPARIN SODIUM 60 MG/0.6 ML SQ SCH ×2 (08:15→20:18)
[2020-02-27] MEDS: ZINC SULFATE 220 CAPSULE PO SCH (08:15)
[2020-02-27] MEDS: ASCORBIC ACID 500 MG TAB PO SCH (08:15)
[2020-02-28] VITALS (7 sets, daily range): BP systolic 88–102; BP diastolic 49–60
[2020-02-28 05:42] LABS: BASOPHILS % (AUTO) 1.1 % (0.0-5.0); EOSINOPHILS % (AUTO) 1.5 % (0.0-8.0); HEMATOCRIT 31.3 % (42-54); LYMPHOCYTES % (AUTO) 25.6 % (21.0-51.0); MEAN CORPUSCULAR HEMOGLOBIN 26.5 pg (27.0-33.0); MEAN CORPUSCULAR HGB CONC 31.9 g/dL (32.0-36.0); MONOCYTES % (AUTO) 9.3 % (3.0-13.0); NEUTROPHILS % (AUTO) 58.6 % (40.0-77.0); PLATELET COUNT (AUTO) 524 K/uL (130-400); RED BLOOD CELL COUNT(AUTO) 3.77 MIL/uL (4.50-6.20); RED CELL DISTRIBUTION WIDTH 13.9 % (11.0-15.5); WHITE BLOOD COUNT (AUTO) 15.5 K/uL (4.8-10.8)
[2020-02-28] MEDS: INSULIN HUMULIN R 100 UNIT/ML 3ML SQ SCH ×4 (06:00→21:00)
[2020-02-28 06:01] LABS: CARBON DIOXIDE 22 mmol/L (21-32); CHLORIDE 105 mmol/L (101-111); CREATININE 0.9 mg/dL (0.5-1.5); GLOMERULAR FILTR. RATE CALC 91 mL/min (>60); GLUCOSE,RANDOM 115 mg/dL (70-105); SODIUM SERUM 135 mmol/L (136-145); UREA NITROGEN, BLOOD 35 mg/dL (7-18)
[2020-02-28] MEDS: POLYETHYLENE GLYCOL 3350 17 GM POWD.PACK PO SCH (08:04)
[2020-02-28] MEDS: ASCORBIC ACID 500 MG TAB PO SCH (08:04)
[2020-02-28] MEDS: LOSARTAN 50 MG TABLET PO SCH (08:04)
[2020-02-28] MEDS: NAPROXEN 500 MG TABLET PO SCH (08:05)
[2020-02-28] MEDS: ZINC SULFATE 220 CAPSULE PO SCH (08:05)
[2020-02-28] MEDS: ENOXAPARIN SODIUM 60 MG/0.6 ML SQ SCH (08:06)
[2020-02-28] MEDS ORDERED: PANTOPRAZOLE 40 MG/VIAL IVP SCH (11:30)
[2020-02-28] MEDS: PANTOPRAZOLE SODIUM 80 MG in SODIUM CHLORIDE 0.9% 100 ML IVP SCH (12:59)
[2020-02-28 13:28] LABS: HEMATOCRIT 27.2 % (42-54); LYMPHOCYTES % (AUTO) 20.6 % (21.0-51.0); MEAN CORPUSCULAR HEMOGLOBIN 26.8 pg (27.0-33.0); MEAN CORPUSCULAR HGB CONC 32.4 g/dL (32.0-36.0); MEAN CORPUSCULAR VOLUME 82.9 fL (79-99); MONOCYTES % (AUTO) 9.4 % (3.0-13.0); NEUTROPHILS % (AUTO) 63.4 % (40.0-77.0); PLATELET COUNT (AUTO) 454 K/uL (130-400); RED BLOOD CELL COUNT(AUTO) 3.28 MIL/uL (4.50-6.20); RED CELL DISTRIBUTION WIDTH 13.9 % (11.0-15.5); WHITE BLOOD COUNT (AUTO) 14.4 K/uL (4.8-10.8)
[2020-02-28] MEDS: LACTATED RINGERS 1000ML 1,000 ML IV SCH (16:10)
[2020-02-28 17:17] LABS: INR 1.12 (0.85-1.15); PROTHROMBIN TIME 11.9 SEC (9.6-11.6)
[2020-02-28 17:19] LABS: PARTIAL THROMBOPLASTIN TIME 28.3 SEC (26.3-35.5)
[2020-02-28 20:26] LABS: HEMATOCRIT 25.9 % (42-54)
[2020-02-29] VITALS (7 sets, daily range): BP systolic 88–150; BP diastolic 56–94
[2020-02-29 05:24] LABS: EOSINOPHILS % (AUTO) 0.9 % (0.0-8.0); HEMATOCRIT 23.7 % (42-54); LYMPHOCYTES % (AUTO) 23.8 % (21.0-51.0); MEAN CORPUSCULAR HEMOGLOBIN 26.6 pg (27.0-33.0); MEAN CORPUSCULAR HGB CONC 32.1 g/dL (32.0-36.0); MEAN CORPUSCULAR VOLUME 82.9 fL (79-99); MONOCYTES % (AUTO) 7.9 % (3.0-13.0); PLATELET COUNT (AUTO) 425 K/uL (130-400); RED BLOOD CELL COUNT(AUTO) 2.86 MIL/uL (4.50-6.20); RED CELL DISTRIBUTION WIDTH 13.9 % (11.0-15.5)
[2020-02-29] MEDS: INSULIN HUMULIN R 100 UNIT/ML 3ML SQ SCH ×4 (05:34→21:00)
[2020-02-29 05:54] LABS: CREATININE 0.9 mg/dL (0.5-1.5); POTASSIUM 4.4 mmol/L (3.5-5.1)
[2020-02-29] MEDS: LACTATED RINGERS 1000ML 1,000 ML IV SCH ×2 (07:34→21:35)
[2020-02-29] MEDS: PANTOPRAZOLE SODIUM 80 MG in SODIUM CHLORIDE 0.9% 100 ML IVP SCH ×2 (08:19→18:28)
[2020-02-29] MEDS: ASCORBIC ACID 500 MG TAB PO SCH (08:19)
[2020-02-29] MEDS: ZINC SULFATE 220 CAPSULE PO SCH (08:19)
[2020-02-29 13:44] LABS: HEMATOCRIT 27.4 % (42-54)
[2020-02-29] MEDS: SUCRALFATE 1 GM TABLET PO SCH ×2 (16:41→21:34)
[2020-03-01 00:09] VITALS: BP 112/67
[2020-03-01 03:48] VITALS: BP 108/65
[2020-03-01 05:30] LABS: BASOPHILS % (AUTO) 1.4 % (0.0-5.0); LYMPHOCYTES % (AUTO) 20.6 % (21.0-51.0); MEAN CORPUSCULAR HEMOGLOBIN 27.3 pg (27.0-33.0); MEAN CORPUSCULAR VOLUME 85.3 fL (79-99); MONOCYTES % (AUTO) 8.2 % (3.0-13.0); PLATELET COUNT (AUTO) 375 K/uL (130-400); RED BLOOD CELL COUNT(AUTO) 2.93 MIL/uL (4.50-6.20); RED CELL DISTRIBUTION WIDTH 14.2 % (11.0-15.5); WHITE BLOOD COUNT (AUTO) 13.3 K/uL (4.8-10.8)
[2020-03-01 05:40] LABS: CREATININE 0.9 mg/dL (0.5-1.5)
[2020-03-01] MEDS: INSULIN HUMULIN R 100 UNIT/ML 3ML SQ SCH ×4 (06:20→21:00)
[2020-03-01] MEDS: SUCRALFATE 1 GM TABLET PO SCH ×4 (06:49→20:14)
[2020-03-01] MEDS: ZINC SULFATE 220 CAPSULE PO SCH (08:21)
[2020-03-01] MEDS: ASCORBIC ACID 500 MG TAB PO SCH (08:21)
[2020-03-01 08:42] VITALS: BP 114/69
[2020-03-01] MEDS ORDERED: COMPOUND IV MISC 1 EACH IVSOLN MISC PRN (09:15)
[2020-03-01] MEDS: IRON SUCROSE COMPLEX 100 MG in SODIUM CHLORIDE 0.9% 50 ML IV SCH (09:55)
[2020-03-01 12:16] VITALS: BP 113/63
[2020-03-01] MEDS: LACTATED RINGERS 1000ML 1,000 ML IV SCH (13:13)
[2020-03-01 15:04] LABS: HEMATOCRIT 24.9 % (42-54)
[2020-03-01 16:35] VITALS: BP 112/64
[2020-03-01 19:30] VITALS: BP 100/54
[2020-03-01] MEDS: PANTOPRAZOLE 40 MG/VIAL IVP SCH (20:13)
[2020-03-02] VITALS: BP 92/59
[2020-03-02 03:00] VITALS: BP 96/53
[2020-03-02] MEDS: LACTATED RINGERS 1000ML 1,000 ML IV SCH (03:39)
[2020-03-02] MEDS: SUCRALFATE 1 GM TABLET PO SCH ×2 (05:28→11:21)
[2020-03-02 05:32] LABS: BASOPHILS % (AUTO) 1.1 % (0.0-5.0); EOSINOPHILS % (AUTO) 1.2 % (0.0-8.0); HEMATOCRIT 25.5 % (42-54); LYMPHOCYTES % (AUTO) 18.6 % (21.0-51.0); MEAN CORPUSCULAR HEMOGLOBIN 27.7 pg (27.0-33.0); MEAN CORPUSCULAR HGB CONC 32.5 g/dL (32.0-36.0); MONOCYTES % (AUTO) 8.3 % (3.0-13.0); NUCLEATED RED BLOOD CELLS 0.2 % (0.0-0.19); PLATELET COUNT (AUTO) 381 K/uL (130-400); RED CELL DISTRIBUTION WIDTH 14.9 % (11.0-15.5); WHITE BLOOD COUNT (AUTO) 12.4 K/uL (4.8-10.8)
[2020-03-02] MEDS: INSULIN HUMULIN R 100 UNIT/ML 3ML SQ SCH ×2 (05:58→11:30)
[2020-03-02 08:00] VITALS: BP 108/64
[2020-03-02] MEDS: ASCORBIC ACID 500 MG TAB PO SCH (08:50)
[2020-03-02] MEDS: ZINC SULFATE 220 CAPSULE PO SCH (08:50)
[2020-03-02] MEDS: IRON SUCROSE COMPLEX 100 MG in SODIUM CHLORIDE 0.9% 50 ML IV SCH (09:15)
[2020-03-02] MEDS: PANTOPRAZOLE 40 MG/VIAL IVP SCH (09:15)
[2020-03-02] MEDS ORDERED: PANT40TA PO (11:57)
[2020-03-02] MEDS ORDERED: SUCR1TAB PO (11:57)
[2020-03-02] MEDS ORDERED: FERR325T22 PO (11:57)
[2020-03-02 12:00] VITALS: BP 97/60
== END 2020-03-02 16:00 | disposition home or self-care (01) | DRG 871 ==
LOC: EDH 12:54 → EDHIP 12:55 → 3AH 23:08 → 3CH 02-16 15:16 → 2AH 02-16 21:16
PROVIDERS: ADMIT Internal Medicine; ATTEND Internal Medicine
PROC: 30233N1 Transfusion of Nonautologous Red Blood Cells into Peripheral Vein, Percutaneous Approach (ICD-10-PCS; principal; 2020-02-29)
DX: A41.9 Sepsis, unspecified organism (principal); U07.1 COVID-19; J12.82 Pneumonia due to coronavirus disease 2019; N39.0 Urinary tract infection, site not specified; E87.1 Hypo-osmolality and hyponatremia; Z16.12 Extended spectrum beta lactamase (ESBL) resistance; Z16.24 Resistance to multiple antibiotics; K92.1 Melena; E11.9 Type 2 diabetes mellitus without complications; K40.90 Unilateral inguinal hernia, without obstruction or gangrene, not specified as recurrent; K57.90 Diverticulosis of intestine, part unspecified, without perforation or abscess without bleeding; N43.3 Hydrocele, unspecified; I86.1 Scrotal varices; I10 Essential (primary) hypertension; B96.20 Unspecified Escherichia coli [E. coli] as the cause of diseases classified elsewhere; E66.01 Morbid (severe) obesity due to excess calories; N45.3 Epididymo-orchitis; D64.9 Anemia, unspecified; R53.81 Other malaise; E78.00 Pure hypercholesterolemia, unspecified; N50.3 Cyst of epididymis; Z74.01 Bed confinement status; Z83.3 Family history of diabetes mellitus; Z82.49 Family history of ischemic heart disease and other diseases of the circulatory system; Z90.49 Acquired absence of other specified parts of digestive tract; Z68.39 Body mass index [BMI] 39.0-39.9, adult
CPT/HCPCS: 36415; 71045; 72195; 74176; 76870; 80048; 80053; 80076; 81001; 82270; 82550; 82728; 82948; 83036; 83605; 83615; 84145; 84484; 85014; 85018; 85025; 85027; 85378; 85610; 85730; 86140; 86850; 86900; 86901; 86923; 87040; 87077; 87088; 87186; 87426; 87486; 87797; 93970; C9113; G0378; J1100; J1650; J1756; J1885; J2185; J2543; J3370; J7040; J7050; J7120; P9016; U0003

== ENCOUNTER 2020-07-18 13:05 | Emergency (ER) | payer OTHER ==
[~2020-07-18 13:05] MED LIST: FERR325T22 PO; PANT40TA PO; SUCR1TAB PO
[2020-07-18 13:56] LABS: BASOPHILS % (AUTO) 1.2 % (0.0-5.0); EOSINOPHILS % (AUTO) 1.5 % (0.0-8.0); HEMATOCRIT 42.5 % (42-54); LYMPHOCYTES % (AUTO) 35.9 % (21.0-51.0); MEAN CORPUSCULAR HEMOGLOBIN 25.9 pg (27.0-33.0); MEAN CORPUSCULAR HGB CONC 31.8 g/dL (32.0-36.0); MEAN CORPUSCULAR VOLUME 81.4 fL (79-99); MONOCYTES % (AUTO) 7.3 % (3.0-13.0); NEUTROPHILS % (AUTO) 53.2 % (40.0-77.0); PLATELET COUNT (AUTO) 269 K/uL (130-400); RED BLOOD CELL COUNT(AUTO) 5.22 MIL/uL (4.50-6.20); RED CELL DISTRIBUTION WIDTH 14.4 % (11.0-15.5); WHITE BLOOD COUNT (AUTO) 12.7 K/uL (4.8-10.8)
[2020-07-18] MEDS ORDERED: CEPHALEXIN 500 MG CAPSULE ONE (14:02)
== END 2020-07-18 14:38 | disposition home or self-care (01) ==
LOC: EDH 13:05
DX: L73.8 Other specified follicular disorders (principal); I10 Essential (primary) hypertension; E11.9 Type 2 diabetes mellitus without complications; E78.00 Pure hypercholesterolemia, unspecified; Z90.49 Acquired absence of other specified parts of digestive tract
CPT/HCPCS: 36415; 82948; 85025